=== PATIENT | female | born 1950 | race Caucasian/White ===

== ENCOUNTER 2016-10-16 08:57 | Outpatient (CLI) | payer MEDICARE, OTHER ==
[2016-10-16] MEDS ORDERED: IOTHALAMATE MEGLUMINE 50 ML VIAL IVP ONE (10:10)
[2016-10-16] MEDS ORDERED: GADOPENTETATE DIMEGLUMINE 5 ML VIAL IVP ONE (10:13)
[2016-10-16] MEDS ORDERED: LIDOCAINE 1% 50 ML MDV SUBQ ONE (10:13)
--- NOTE | 2016-10-16 12:19 | MRI Report ---
EXAM: LEFT SHOULDER MRI ARTHROGRAM WITH CONTRAST EXAM DATE: 10/16/2016 10:33 AM. CLINICAL HISTORY: Left shoulder pain. History of breast cancer. COMPARISON: None. TECHNIQUE: Multiplanar, multisequence T1-weighted and fluid-sensitive sequences of the shoulder after an arthrographic injection of dilute gadolinium, dictated under a separate exam. Other: None. FINDINGS: Acromioclavicular Region: The acromion is type II. Moderate acromioclavicular joint osteoarthritis. T here is sclerosis of the inferior margin of the acromion, suggestive of pseudoarticulation with the h umeral head. Fluid fills the subacromial bursa. Glenohumeral Region: There is superior subluxation of the humeral head consistent with chronic full-t hickness rotator cuff tear. Pseudoarticulation with the acromion. Moderate thinning of the glenohumer al cartilage. Bone Marrow: No fracture, marrow edema or bone lesions. Labrum: Mild labral fraying. Biceps Tendon: Tendinosis and partial-thickness tear of the long head of biceps in the rotator interv al. Musculature/Rotator Cuff: High-grade partial-thickness tear of subscapularis with atrophy. Complete r upture of supraspinatus with atrophy. High-grade partial-thickness tearing of infraspinatus. Other: The subcutaneous tissues are unremarkable. IMPRESSION: 1. Moderate acromioclavicular joint osteoarthritis. 2. Complete rupture of supraspinatus with atrophy. Near complete rupture of subscapularis with atroph y. 3. Tendinosis and partial-thickness tearing of the long head of biceps. 4. Superior subluxation of the humeral head with pseudoarticulation with the acromion. Mild glenohume ral osteoarthritis. [facility] MUSCULOSKELETAL RADIOLOGY SECTION Referring Provider Line: [phone] SITE ID: [id number]
--- NOTE | 2016-10-16 13:37 | XRAY Report ---
LEFT SHOULDER ARTHROGRAM: 10/16/2016 CLINICAL HISTORY: A 66-year-old female who is having left shoulder pain for many years. 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 Present exam is being done immediately preceding her MRI of the left shoulder. TECHNIQUE: A PAR conference was held, informed consent was obtained. Left shoulder was sterilely prepped with Betadine and ChloraPrep. Sterile technique was used throughout the exam. A total of 6 mL of 1% Xylocaine was used in the skin and subcutaneous tissues of the left shoulder. Under fluoroscopic guidance , a 22-gauge, 2-1/2 inch needle was placed into the left shoulder joint. Initially, 1 mL of Conray contrast was injected into the left shoulder joint. There was some question in regard to the needle being into the left shoulder joint. Because of this, the contrast material was aspirated back into the syringe. In addition to the contrast, a small amount of joint fluid was also aspirated back into the syringe. This joint fluid appeared to be rust colored which suggested old blood. Once it was determined that the needle tip was within the left shoulder joint, 15 mL of a mixture 10 mL of 1% Xylocaine and 10 mL of Conray 60 with 0.1 mL of gadolinium. FINDINGS: Upon completion of the injection into the left shoulder joint, it was noted that the joint capsule was deformed and enlarged. Also, the left humeral head was mildly subluxed superiorly in relationship to the acromion and articular surface of the left glenoid. The articular cartilage of the left shoulder joint was outlined by the contrast material. Combination of findings most likely indicates a chronic left rotator cuff tear in association with a shoulder capsule deformity produced by adhesions and/or absence/tear of at least some of the glenohumeral ligaments. Present findings are only indirect signs of shoulder pathology. The chronic left rotator cuff tear as well as the presence of potential glenohumeral ligament tears should be confirmed via the MRI arthrogram for a definitive diagnosis. FLUORO TIME: 4.1 minutes. One image was obtained. IMPRESSION: SUCCESSFUL INJECTION OF THE LEFT SHOULDER FOR MRI ARTHROGRAM. THE MIXTURE INJECTED CONTAINED 0.1 ML OF MAGNEVIST. JOB #: [id number] EXT JOB #: [id number] [facility]
== END 2016-10-16 08:58 | disposition home or self-care (01) ==
LOC: DI 08:57
PROVIDERS: ATTEND Family Medicine
DX: M19.012 Primary osteoarthritis, left shoulder (principal); M75.102 Unspecified rotator cuff tear or rupture of left shoulder, not specified as traumatic; S46.112A Strain of muscle, fascia and tendon of long head of biceps, left arm, initial encounter; S43.002A Unspecified subluxation of left shoulder joint, initial encounter
CPT/HCPCS: 23350; 73222; 77002; Q9961

== ENCOUNTER 2016-11-08 13:46 | Outpatient (CLI) | payer MEDICARE, OTHER | END 2016-11-08 13:47 | disposition home or self-care (01) | LOC: DI 13:46 | PROVIDERS: ATTEND Family Medicine | DX: Z53.9 Procedure and treatment not carried out, unspecified reason (principal) ==

== ENCOUNTER 2016-11-10 09:02 | Outpatient (CLI) | payer MEDICARE, OTHER ==
--- NOTE | 2016-11-10 10:38 | XRAY Report ---
THREE-VIEW LEFT SHOULDER: 11/10/2016 CLINICAL INDICATION: Pain, bulge. FINDINGS: Internal and external rotational views and a scapular Y view of the left shoulder are comp ared to previous MRI of 10/16/2016. The humeral head is high-riding, compatible with chronic rotator cuff tear. There is no evidence of acute fracture or dislocation. Mild osteoarthritic changes are seen. Surgical clips are present in the left axilla. IMPRESSION: MILD OSTEOARTHRITIS. CHRONIC ROTATOR CUFF TEAR. NO EVIDENCE OF ACUTE FRACTURE. JOB #: [id number] EXT JOB #:[id number]
== END 2016-11-10 09:03 | disposition home or self-care (01) ==
LOC: DI 09:02
PROVIDERS: ATTEND Family Medicine
DX: M19.012 Primary osteoarthritis, left shoulder (principal); M75.102 Unspecified rotator cuff tear or rupture of left shoulder, not specified as traumatic

== ENCOUNTER 2016-11-12 14:29 | Emergency (ER) | payer MEDICARE, OTHER ==
--- NOTE | 2016-11-12 16:00 | ED Physician Documentation ---
PD HPI UPPER EXT INJURY - Stated complaint Stated Complaint: L shoulder pain - Chief complaint Chief Complaint: Ext Problem - History obtained from History obtained from: Patient - History of Present Illness Location: Left, Shoulder Type of injury: Other (she has had shoulder pain ongoing but few days ago was lifting gently and felt pop in the upper arm and hurts with flexion of elbow. Now noting bruising and swelling of the mid biceps area left upper arm.). No: Fall, Twist Where injury occurred: Home Timing - onset: How many days ago (2-3) Timing - details: Abrupt onset Improved by: Rest Worsened by: Moving (flexion of elbow) Associated symptoms: Weakness (not as strong and it hurts to lift with left arm. ), Swelling, Discolored (bruising of mid biceps area). No: Numbness Contributing factors: No: Anticoagulated Recently seen: Clinic (saw Ortho about the shoulder with MRI of it. 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 - Past Surgical History Past Surgical History: Yes General: Appendectomy Ortho: Rotator cuff repair - Present Medications Home Medications: Ambulatory Orders Medication Instructions Recorded Confirmed Citalopram Hydrobromide [Celexa] 60 mg PO DAILY 06/14/15 06/14/15 Clonazepam [Klonopin] 1 mg PO PRN PRN 06/14/15 Hydrocodone/Acetaminophen [Vicodin 7 mg PO QID 06/14/15 Es 7.5-300 mg Tablet] Enalapril/Hydrochlorothiazide 1 tab PO DAILY 11/12/16 11/12/16 [Enalapril-Hctz 10-25 mg Tablet] - Allergies Allergies/Adverse Reactions: Allergies Allergy/AdvReac Type Severity Reaction Status Date / Time ibuprofen Allergy Unknown Verified 11/12/16 14:41 morphine Allergy Unknown Verified 11/12/16 14:41 Sulfa (Sulfonamide Allergy Unknown Verified 11/12/16 14:41 Antibiotics) - Social History Does the pt smoke?: No Smoking Status: Never smoker Does the pt have substance abuse?: No - POLST Patient has POLST: No PD ED PE NORMAL - Vitals Vital signs reviewed: Yes - General General: Alert and oriented X 3, No acute distress, Well developed/nourished - Cardiac Cardiac: RRR, No murmur - Respiratory Respiratory: Clear bilaterally - Derm Derm: Normal color, Warm and dry - Extremities Extremities: Other (left upper arm with tender upper biceps area, some swelling/ firmness mid biceps and some bruising there. No fluctuance. She is able to flex at elbow against resistance. Softness of the proximal insertion of the long head of biceps though, suggesting partial tear of the biceps. ) Results - Vitals Vitals: Vital Signs - 24 hr 11/12/16 11/12/16 14:35 16:45 Temperature 36.2 C L 37.3 C Heart Rate 81 84 Respiratory 14 18 Rate Blood Pressure 161/84 H 141/89 H O2 Saturation 100 98 Oxygen O2 Source Room air PD MEDICAL DECISION MAKING - ED course Complexity details: reviewed old records (recent MRI arthrogram of the shoulder with rotator cuff tears and partial/mostly torn long head of biceps. Her exam is consistent with now tear of that, but with other head still attached as she has flexion of elbow though weaker and hurts. ), considered differential, d/w patient Departure - Departure Disposition: 01 Home, Self Care Clinical Impression: Biceps tendon rupture, proximal Qualifiers: Encounter type: initial encounter Laterality: left Qualified Code(s): S46.112A - Strain of muscle, fascia and tendon of long head of biceps, left arm, initial encounter Condition: Stable Record reviewed to determine appropriate education?: Yes Follow-Up: Chelo Wright MD [Primary Care Provider] - Comments: I think one of the heads of the biceps tendon fully tore, but feels like there is still attachment of the other head. Continue the sling with gentle range of motion of the shoulder a few times daily so the shoulder does not stiffen up/ freeze. Continue current medications. See Ortho on Sunday as planned about the rotator cuff and now biceps tendon. Discharge Date/Time: 11/12/16 16:45
[2016-11-12 16:46] VITALS: BP 141/89
== END 2016-11-12 16:45 | disposition home or self-care (01) ==
LOC: ED 14:29
DX: S46.112A Strain of muscle, fascia and tendon of long head of biceps, left arm, initial encounter (principal); I10 Essential (primary) hypertension; X50.9XXA Other and unspecified overexertion or strenuous movements or postures, initial encounter
CPT/HCPCS: 99283

== ENCOUNTER 2017-12-21 12:00 | Outpatient (CLI) | payer MEDICARE, OTHER ==
--- NOTE | 2017-12-24 09:48 | Mammography Report ---
Reason: SCREENING MAMMO, HX OF BREAST CANCER Procedure Date: 12/21/2017 Accession Number: [id number] / [id number] Procedure: [facility] - Screening Mammo Dig Bilat CPT Code: FULL RESULT: EXAM: Screening Mammo Dig Bilat DATE: 12/21/2017 1:37 PM CLINICAL HISTORY: 67-year-old female with personal history of left breast cancer status post lumpectomy and chemoradiation. TECHNIQUE: Bilateral CC and MLO views were obtained. COMPARISON: 03/14/2016, 01/06/2015, 10/08/2013, 10/09/2012. FINDINGS: The breasts demonstrate heterogeneously dense fibroglandular parenchyma bilaterally. Posttreatment including postsurgical changes are seen in the left breast. Typically benign coarse and vascular calcifications are seen in the right breast. No suspicious masses, clustered microcalcifications, or regions of architectural distortion are identified. IMPRESSION: Benign findings RECOMMENDATION: Routine annual screening unless otherwise clinically indicated. BIRADS CATEGORY 2: Benign findings STANDARD QUALIFYING STATEMENTS: 1. This examination was not reviewed with the aid of Computer-Aided Detection (CAD). 2. A negative or benign imaging report should not delay biopsy if clinically suspicious findings are present. Consider surgical consultation if warrented. More than 5% of cancers are not identified by imaging. 3. Dense breasts may obscure an underlying neoplasm.
== END 2017-12-21 12:01 | disposition home or self-care (01) ==
LOC: DI 12:00
PROVIDERS: ATTEND Nurse Practitioner Family
DX: Z12.31 Encounter for screening mammogram for malignant neoplasm of breast (principal); Z08 Encounter for follow-up examination after completed treatment for malignant neoplasm; Z85.3 Personal history of malignant neoplasm of breast
CPT/HCPCS: 77067

== ENCOUNTER 2018-01-07 16:17 | Outpatient (CLI) | payer MEDICARE, OTHER ==
--- NOTE | 2018-01-08 10:51 | MRI Report ---
Reason: CHRONIC LOW BACK PAIN, L SHOULDER SUPRASPINOTUS TE Procedure Date: 01/07/2018 Accession Number: [id number] / [id number] Procedure: MRI - Shoulder LT W/O CPT Code: FULL RESULT: EXAM: LEFT SHOULDER MRI WITHOUT CONTRAST EXAM DATE: 01/07/2018 05:11 PM. CLINICAL HISTORY: Chronic low back pain. Left shoulder supraspinatus tear. COMPARISON: SHOULDER 3 VIEW LT 11/10/2016 9:24 AM. TECHNIQUE: Multiplanar, multisequence T1-weighted and fluid-sensitive sequences of the shoulder without contrast. Other: None. FINDINGS: Acromioclavicular Region: The acromion is type II. Mild acromioclavicular joint osteoarthritis. There is fluid in the subacromial bursa. Glenohumeral Region: Superior subluxation of the humeral head with minimal hyaline cartilage erosion. Moderate-sized joint effusion. Bone Marrow: There is fluid in the greater tuberosity. Labrum: Superior labrum degeneration consistent with rupture of the long head of biceps tendon. Musculature/Rotator Cuff: Complete rupture and atrophy of supraspinatus. Mild tendinosis of infraspinatus. Chronic rupture and atrophy of subscapularis. Biceps Tendon: Complete rupture of the long head of biceps. Other: The subcutaneous tissues are unremarkable. IMPRESSION: 1. Chronic rupture and atrophy of supraspinatus and subscapularis. Superior subluxation of the humeral head with minimal glenohumeral osteoarthritis. 2. Moderate-sized glenohumeral joint effusion. 3. Complete rupture of long head of biceps. [facility] MUSCULOSKELETAL RADIOLOGY SECTION
== END 2018-01-07 16:18 | disposition home or self-care (01) ==
LOC: DI 16:17
PROVIDERS: ATTEND Nurse Practitioner Family
DX: S46.012A Strain of muscle(s) and tendon(s) of the rotator cuff of left shoulder, initial encounter (principal); M19.012 Primary osteoarthritis, left shoulder; M25.412 Effusion, left shoulder; S46.112A Strain of muscle, fascia and tendon of long head of biceps, left arm, initial encounter

== ENCOUNTER 2018-09-12 09:31 | Outpatient (CLI) | payer MEDICARE, OTHER ==
--- NOTE | 2018-09-14 03:13 | XRAY Report ---
Reason: INJURY LEFT FOOT APPROX 2 WEEKS AGO Procedure Date: 09/12/2018 Accession Number: [id number] / [id number] Procedure: XR - Foot 3 View LT CPT Code: FULL RESULT: EXAM: LEFT FOOT RADIOGRAPHY EXAM DATE: 09/12/2018 09:43 AM. CLINICAL HISTORY: INJURY LEFT FOOT APPROX 2 WEEKS AGO. COMPARISON: None. TECHNIQUE: 3 views. FINDINGS: Bones: Normal. No fractures or bone lesions. Joints: Mild osteoarthritis with hallux valgus. Soft Tissues: Normal. No soft tissue swelling. IMPRESSION: Mild osteoarthritis, with hallux valgus. No evidence of fracture. [facility]
== END 2018-09-12 09:32 | disposition home or self-care (01) ==
LOC: DI 09:31
PROVIDERS: ATTEND Podiatrist
DX: S99.922A Unspecified injury of left foot, initial encounter (principal); M19.072 Primary osteoarthritis, left ankle and foot; M20.12 Hallux valgus (acquired), left foot

== ENCOUNTER 2018-12-28 17:24 | Emergency (ER) | payer MEDICARE, OTHER ==
[2018-12-28 18:12] LABS: BASOPHILS % (AUTO) 0.6 %; EOSINOPHILS # (AUTO) 0.1 10^3/uL (0.0-0.7); EOSINOPHILS % (AUTO) 1.9 %; HGB - HEMOGLOBIN 11.5 g/dL (12.0-16.0); LYMPHOCYTES # (AUTO) 1.8 10^3/uL (1.5-3.5); LYMPHOCYTES % (AUTO) 26.4 %; MEAN CORPUSCULAR HEMOGLOBIN 31.7 pg (27.0-31.0); MEAN CORPUSCULAR HGB CONC 33.1 g/dL (32.0-36.0); MEAN CORPUSCULAR VOLUME 95.6 fL (81.0-99.0); MEAN PLATELET VOLUME 8.5 fL (7.9-10.8); MONOCYTES # (AUTO) 0.6 10^3/uL (0.0-1.0); MONOCYTES % (AUTO) 8.3 %; NEUTROPHILS # (AUTO) 4.3 10^3/uL (1.5-6.6); NEUTROPHILS % (AUTO) 62.5 %; PLT - PLATELET COUNT 335 10^3/uL (130-450); RED BLOOD COUNT 3.63 10^6/uL (4.20-5.40); WHITE BLOOD COUNT 6.9 x10^3/uL (4.8-10.8)
[2018-12-28 18:26] LABS: ALBUMIN/GLOBULIN RATIO 1.4 (1.0-2.2); BILIRUBIN,TOTAL 0.7 mg/dL (0.2-1.0); CALCIUM 9.5 mg/dL (8.5-10.3); CREATININE 0.5 mg/dL (0.4-1.0); CRP - C-REACTIVE PROTEIN 2.8 mg/dL (0-1.0); TOTAL PROTEIN 6.8 g/dL (6.7-8.2)
[2018-12-28 19:06] LABS: BILIRUBIN,URINE NEGATIVE (NEGATIVE); CLARITY,URINE CLEAR (CLEAR); GLUCOSE, URINE (UA) NEGATIVE (NEGATIVE); KETONES,URINE (UA) NEGATIVE (NEGATIVE); LEUKOCYTE ESTERASE, URINE TRACE (NEGATIVE); NITRITE,URINE NEGATIVE (NEGATIVE); OCCULT BLOOD,URINE TRACE-INTA (NEGATIVE); PH,URINE 6.5 PH (5.0-7.5); PROTEIN,URINE NEGATIVE (NEGATIVE); UROBILINOGEN,URINE 0.2 (NORMAL) E.U./dL (NORMAL)
--- NOTE | 2018-12-28 19:08 | ED Physician Documentation ---
History of Present Illness - Stated complaint Stated Complaint: LT LEG PX - Chief complaint Chief Complaint: Wound - Additonal information Additional information: This is a 68-year-old female with a history of hypertension, who presents with pain and swelling and redness over her left 2nd toe. Patient noticed this morning that she had some redness in her toe after she had an abrasion there from wearing boots, redness and swelling has increased and she noticed a pustule forming on the toe. And some redness streaking up her leg so she presented here. She denies fever. 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 Psych: Depression Musculoskeletal: Osteoarthritis, Osteopenia, Chronic back pain - Past Surgical History Past Surgical History: Yes General: Appendectomy Ortho: Rotator cuff repair - Present Medications Home Medications: Ambulatory Orders Medication Instructions Recorded Confirmed Citalopram Hydrobromide [Celexa] 60 mg PO DAILY 06/14/15 12/22/16 Hydrocodone/Acetaminophen [Vicodin 7 mg PO QID 06/14/15 12/22/16 Es 7.5-300 mg Tablet] clonazePAM [Klonopin] 1 mg PO PRN PRN 06/14/15 12/22/16 Enalapril/Hydrochlorothiazide 1 tab PO DAILY 11/12/16 12/22/16 [Enalapril-Hctz 10-25 mg Tablet] Multivit with Calcium,Iron,Min 1 each PO DAILY 12/22/16 12/22/16 [Multiple Vitamins For Women] [place]-3S/Dha/Epa/Fish Oil [Fish 1 each PO DAILY 12/22/16 12/22/16 Oil 1,200 mg Softgel] Bacitracin Zinc Oint 1 applic TOP BID #1 tube 12/28/18 Clindamycin HCl [Clindamycin 300MG 300 mg PO Q6H #32 capsule 12/28/18 CAP] - Allergies Allergies/Adverse Reactions: Allergies Allergy/AdvReac Type Severity Reaction Status Date / Time ibuprofen Allergy Unknown Verified 12/28/18 17:40 morphine Allergy Unknown Verified 12/28/18 17:40 Sulfa (Sulfonamide Allergy Unknown Verified 12/28/18 17:40 Antibiotics) - Social History Does the pt smoke?: No Smoking Status: Never smoker Does the pt have substance abuse?: No - POLST Patient has POLST: No PD ED PE NORMAL - Vitals Vital signs reviewed: Yes - General General: Alert and oriented X 3, No acute distress - HEENT HEENT: PERRL - Neck Neck: Supple, no meningeal sign - Cardiac Cardiac: RRR - Respiratory Respiratory: No respiratory distress, Clear bilaterally - Abdomen Abdomen: Non distended - Derm Derm: Warm and dry - Extremities Extremities: Other (There is a fluctuant pustule over the distal joint on the dorsal surface of the second toe on the left foot. There is surrounding redness which is streaking up the dorsum of the foot and up the ankle to the lower jenkins. There is no volar redness, no bone visible, limb is neurovascularly intact.) - Neuro Neuro: Alert and oriented X 3 - Psych Psych: Normal mood, Normal affect Results - Vitals Vitals: Oxygen O2 Source Room air - Labs Labs: Microbiology 12/28/18 19:00 Urine Culture - Preliminary Urine,Clean Catch CULTURE IN PROGRESS. RESULTS TO FOLLOW. Laboratory Tests 12/28/18 12/28/18 12/28/18 18:05 18:05 18:05 WBC 6.9 RBC 3.63 L Hgb 11.5 L Hct 34.7 L MCV 95.6 MCH 31.7 H MCHC 33.1 RDW 12.0 Plt Count 335 MPV 8.5 Neut # (Auto) 4.3 Lymph # (Auto) 1.8 [place] # (Auto) 0.6 Eos # (Auto) 0.1 Baso # (Auto) 0.0 Absolute Nucleated RBC 0.00 Nucleated RBC % 0.0 ESR 11 Sodium 136 Potassium 3.0 L Chloride 97 L Carbon Dioxide 28 Anion Gap 11.0 BUN 20 Creatinine 0.5 Estimated GFR (MDRD) 123 Glucose 132 H Calcium 9.5 Total Bilirubin 0.7 AST 22 ALT 22 Alkaline Phosphatase 64 C-Reactive Protein 2.8 H Total Protein 6.8 Albumin 4.0 Globulin 2.8 Albumin/Globulin Ratio 1.4 Lipase 35 Urine Color Urine Clarity Urine pH Ur Specific [place] Urine Protein Urine Glucose (UA) Urine Ketones Urine Occult Blood Urine Nitrite Urine Bilirubin Urine Urobilinogen Ur Leukocyte Esterase Urine RBC Urine WBC Ur Squamous Epith Cells Urine Bacteria Ur Microscopic Review Urine Culture Comments 12/28/18 19:00 WBC RBC Hgb Hct MCV MCH MCHC RDW Plt Count MPV Neut # (Auto) Lymph # (Auto) [place] # (Auto) Eos # (Auto) Baso # (Auto) Absolute Nucleated RBC Nucleated RBC % ESR Sodium Potassium Chloride Carbon Dioxide Anion Gap BUN Creatinine Estimated GFR (MDRD) Glucose Calcium Total Bilirubin AST ALT Alkaline Phosphatase C-Reactive Protein Total Protein Albumin Globulin Albumin/Globulin Ratio Lipase Urine Color YELLOW Urine Clarity CLEAR Urine pH 6.5 Ur Specific [place] 1.020 Urine Protein NEGATIVE Urine Glucose (UA) NEGATIVE Urine Ketones NEGATIVE Urine Occult Blood TRACE-INTA Urine Nitrite NEGATIVE Urine Bilirubin NEGATIVE Urine Urobilinogen 0.2 (NORMAL) Ur Leukocyte Esterase TRACE H Urine RBC 0-5 Urine WBC 6-10 H Ur Squamous Epith Cells NONE SEEN Urine Bacteria None Seen Ur Microscopic Review INDICATED Urine Culture Comments INDICATED PD MEDICAL DECISION MAKING - ED course Complexity details: considered differential (Abscess, cellulitis, osteomyelitis, necrotizing soft tissue infection) ED course: Patient presents with a pustule on her left second toe with erythema which is extending up her foot on her lower leg. The obvious abscess was drained as noted above, the patient was given a dose of clindamycin given she has an allergy to sulfa antibiotics. Labs Show no leukocytosis, only a mildly elevated C-reactive protein. She has no fever, or signs of systemic toxicity, And appears appropriate for trial of outpatient antibiotics. The redness is not significantly progressed during her stay here, and she does not have clinical signs of necrotizing soft tissue infection. I discussed with her that she does have a significant cellulitis, and that she needs to watch it carefully for signs of progression. A culture was sent to the wound. I marked out the borders of the area of cellulitis, and explained her that if the erythema progresses 2 cm past the border of the area that is marked out she needs to return to the emergency department. Likewise she should return if she has any systemic symptoms such as fever, or any other worsening. I recommended close follow-up with her primary care provider. I also discussed wound care for the area of the abscess drainage. The abscess itself was very shallow, did not extend to the tendons or bones or joints, and I have a very low suspicion for osteomyelitis, I do not think that she requires a an x-ray of her foot today. Departure - Departure Disposition: 01 Home, Self Care Clinical Impression: Abscess, Cellulitis and abscess of foot Condition: Good Instructions: ED Abscess IandD Follow-Up: EDUARDO QUICK ARNP [Primary Care Provider] - Within 3 Days (For recheck of infection) Prescriptions: Bacitracin Zinc Oint 1 applic TOP BID #1 tube Clindamycin HCl [Clindamycin 300MG CAP] 300 mg PO Q6H #32 capsule Comments: You were seen today for infection of your toe. You had a small abscess there which was drained. Please take the entire course of antibiotics. If the redness is progressing more than 2 cm past the border of the edges that we traced out, return to the emergency department. If you develop fever or other concerning symptoms please return to emergency department as well. Otherwise please follow-up with your primary care provider Discharge Date/Time: 12/28/18 20:51
[2018-12-28 19:20] LABS: BACTERIA,URINE None Seen /HPF (None Seen); RBC,URINE 0-5 /HPF (0-5); SQUAMOUS EPITHELIAL CELL,UR NONE SEEN (<= Few)
[2018-12-28] MEDS ORDERED: CLINDAMYCIN 150 MG CAPSULE PO STA (19:34)
[2018-12-28] MEDS ORDERED: BUFFERED LIDOCAINE 10 ML SYRINGE SUBQ STA (19:52)
[2018-12-28 20:20] VITALS: BP 147/87
== END 2018-12-28 20:51 | disposition home or self-care (01) ==
LOC: ED 17:24
DX: L02.612 Cutaneous abscess of left foot (principal); L03.116 Cellulitis of left lower limb; R79.82 Elevated C-reactive protein (CRP); I10 Essential (primary) hypertension; Z88.2 Allergy status to sulfonamides
CPT/HCPCS: 36415; 80053; 81001; 83690; 85025; 85651; 86140; 87070; 87075; 87086; 87205; 99283; 99284; A9270; 81003

== ENCOUNTER 2019-04-28 13:06 | Outpatient (CLI) | payer MEDICARE, OTHER ==
[2019-04-28 18:55] LABS: RHEUMATOID FACTOR NEGATIVE (Negative)
== END 2019-04-28 13:07 | disposition home or self-care (01) ==
LOC: LAB.S 13:06
PROVIDERS: ATTEND Nurse Practitioner Family
DX: M25.559 Pain in unspecified hip (principal); Z12.11 Encounter for screening for malignant neoplasm of colon; E78.5 Hyperlipidemia, unspecified
CPT/HCPCS: 36415; 80061; 82270; 83721; 85651; 86038; 86140; 86200; 86430

== ENCOUNTER 2020-06-01 11:17 | Outpatient (CLI) | payer MEDICARE, BC ==
--- NOTE | 2020-06-02 10:08 | Mammography Report ---
BILATERAL DIGITAL SCREENING MAMMOGRAM 3D/2D WITH EXAGGERATED CC: 06/01/2020 CLINICAL: Routine screening. Comparison is made to exams dated: 12/21/2017 mammogram, 03/14/2016 mammogram, 10/08/2013 mammogram, mammogram, and 10/09/2012 mammogram - [facility]. The tissue of both breast s is predominantly fatty. No significant masses, calcifications, or other findings are seen in either breast. There has been no significant interval change. IMPRESSION: NEGATIVE There is no mammographic evidence of malignancy. A 1 year screening mammogram is recommended. This exam was interpreted at Station ID: [id number]. NOTE: For mammograms, a report in lay terms will be sent to the patient. Approximately 15% of breast malignancies will not be visualized mammographically. In the management of a palpable breast mass, a negative mammogram must not discourage biopsy of a clinically suspicious lesion. Electronically Signed By: Hector Pal acr/penrad:06/01/2020 15:01:51 ACR BI-RADS Category 1: Negative 3341F PARENCHYMAL PATTERN: (F) - The breast(s) demonstrate(s) diffuse fatty replacement. BI-RADS CATEGORY: (1) - 1 RECOMMENDATION: (ANNUAL) - Recommend routine annual screening mammography. [id number] 1 year screening LATERALITY: (B)
== END 2020-06-01 11:18 | disposition home or self-care (01) ==
LOC: DI.S 11:17
DX: Z12.31 Encounter for screening mammogram for malignant neoplasm of breast (principal)

== ENCOUNTER 2020-06-17 12:35 | Outpatient (CLI) | payer MEDICARE, BC ==
[2020-06-17 15:54] LABS: BASOPHILS % (AUTO) 0.8 %; EOSINOPHILS # (AUTO) 0.1 10^3/uL (0.0-0.7); EOSINOPHILS % (AUTO) 1.8 %; HCT - HEMATOCRIT 37.4 % (37.0-47.0); HGB - HEMOGLOBIN 12.2 g/dL (12.0-16.0); LYMPHOCYTES # (AUTO) 1.4 10^3/uL (1.5-3.5); LYMPHOCYTES % (AUTO) 35.7 %; MEAN CORPUSCULAR HEMOGLOBIN 32.3 pg (27.0-31.0); MEAN CORPUSCULAR HGB CONC 32.6 g/dL (32.0-36.0); MEAN CORPUSCULAR VOLUME 98.9 fL (81.0-99.0); MEAN PLATELET VOLUME 8.7 fL (7.9-10.8); MONOCYTES # (AUTO) 0.5 10^3/uL (0.0-1.0); MONOCYTES % (AUTO) 11.4 %; NEUTROPHILS % (AUTO) 49.8 %; PLT - PLATELET COUNT 412 10^3/uL (130-450); RED BLOOD COUNT 3.78 10^6/uL (4.20-5.40)
[2020-06-17 16:14] LABS: ALBUMIN 4.3 g/dL (3.2-5.5); ALBUMIN/GLOBULIN RATIO 1.4 (1.0-2.2); ALKALINE PHOSPHATASE 82 IU/L (42-121); ALT ALANINE AMINOTRANSFERASE 28 IU/L (10-60); AST ASPARTATE AMINOTRANSFERASE 27 IU/L (10-42); BUN - BLOOD UREA NITROGEN 19 mg/dL (6-20); CALCIUM 9.4 mg/dL (8.5-10.3); CARBON DIOXIDE - CO2 28 mmol/L (21-32); CHLORIDE 96 mmol/L (101-111); CHOL/HDL RATIO 3.6 (<4.4); CHOLESTEROL 297 mg/dL; CREATININE 0.4 mg/dL (0.4-1.0); GFR - MDRD 158 (>89); GLUCOSE 103 mg/dL (70-100); HDL CHOLESTEROL 82 mg/dL; LDL CHOLESTEROL,CALCULATED 195 mg/dL; LDL/HDL RATIO 2.4 (<4.4); POTASSIUM 3.6 mmol/L (3.5-5.0); SODIUM 134 mmol/L (135-145); TOTAL PROTEIN 7.3 g/dL (6.7-8.2); TRIGLYCERIDES 99 mg/dL; VLDL CHOLESTEROL 20 mg/dL
== END 2020-06-17 12:36 | disposition home or self-care (01) ==
LOC: LAB.S 12:35
PROVIDERS: ATTEND Nurse Practitioner Family
DX: A60.00 Herpesviral infection of urogenital system, unspecified (principal); E78.5 Hyperlipidemia, unspecified; I10 Essential (primary) hypertension; E78.1 Pure hyperglyceridemia
CPT/HCPCS: 36415; 80053; 80061; 83721; 85025

== ENCOUNTER 2021-04-12 12:26 | Outpatient (CLI) | payer BC, MEDICARE ==
--- NOTE | 2021-04-12 14:49 | XRAY Report ---
PROCEDURE: Forearm RT INDICATIONS: PAIN IN RIGHT ARM TECHNIQUE: 2 views of the forearm were acquired. COMPARISON: None FINDINGS: Bones: Mildly displaced oblique fracture of the distal ulna. No suspicious bony lesions. Soft tissues: No suspicious soft tissue calcifications or masses. IMPRESSION: Distal ulnar fracture. Reviewed by: Sue Gonzalez MD on 04/12/2021 2:47 PM PST Approved by: Sue Gonzalez MD on 04/12/2021 2:47 PM PST Station ID: [id number]
--- NOTE | 2021-04-12 16:30 | XRAY Report ---
PROCEDURE: Wrist 2 View RT INDICATIONS: PAIN IN RIGHT WRIST TECHNIQUE: 2 views of the wrist were acquired. COMPARISON: X-ray forearm 04/12/2021 FINDINGS: Bones: There is a mildly displaced fracture of the distal ulna. No visualized intra-articular extensi on. No suspicious bony lesions. Soft tissues: No suspicious soft tissue calcifications. IMPRESSION: Mildly displaced distal ulnar metaphyseal fracture. Reviewed by: Jayda Hooks MD on 04/12/2021 4:29 PM PST Approved by: Jayda Hooks MD on 04/12/2021 4:29 PM [facility] Station ID: [id number]
== END 2021-04-12 12:27 | disposition home or self-care (01) ==
LOC: DI.S 12:26
PROVIDERS: ATTEND Family Medicine
DX: S52.601A Unspecified fracture of lower end of right ulna, initial encounter for closed fracture (principal)

== ENCOUNTER 2021-05-17 07:49 | Outpatient (CLI) | payer MEDICARE ==
--- NOTE | 2021-05-17 16:15 | XRAY Report ---
PROCEDURE: Wrist 3 View RT INDICATIONS: RIGHT WRIST FRACTURE TECHNIQUE: 3 views of the wrist were acquired. COMPARISON: 04/12/2021 FINDINGS: Bones: Increased, moderate displacement of the distal ulnar fracture. Scaphoid view: Not requested Soft tissues: No suspicious soft tissue calcifications. IMPRESSION: Increased displacement of distal ulnar fracture. Reviewed by: Sue Gonzalez MD on 05/17/2021 4:14 PM PST Approved by: Sue Gonzalez MD on 05/17/2021 4:14 PM [facility] Station ID: [id number]
== END 2021-05-17 07:50 | disposition home or self-care (01) ==
LOC: DI.WOS 07:49
PROVIDERS: ATTEND Orthopaedic Surgery
DX: S52.201G Unspecified fracture of shaft of right ulna, subsequent encounter for closed fracture with delayed healing (principal)

== ENCOUNTER 2021-06-14 08:00 | Outpatient (CLI) | payer MEDICAID, MEDICARE ==
--- NOTE | 2021-06-14 15:38 | XRAY Report ---
PROCEDURE: Wrist 3 View RT INDICATIONS: RIGHT WRIST FRACTURE TECHNIQUE: 3 views of the wrist were acquired. COMPARISON: Right wrist radiographs 05/17/2021 and 04/12/2021 FINDINGS: Bones: Process appearing changes are seen involving the previously seen distal ulnar fracture with in creased callus formation and periosteal new bone formation. The alignment has not significantly estrada ed compared to the most recent exam. No suspicious bony lesions. Soft tissues: No suspicious soft tissue calcifications. IMPRESSION: Progressive healing changes involving the distal ulnar fracture. Reviewed by: Joey Horn MD on 06/14/2021 3:37 PM PDT Approved by: Joey Horn MD on 06/14/2021 3:37 PM PDT Station ID: [id number]
== END 2021-06-14 23:59 ==
LOC: DI.WOS 08:00
PROVIDERS: ATTEND Physician Assistant
DX: S52.691D Other fracture of lower end of right ulna, subsequent encounter for closed fracture with routine healing (principal)

== ENCOUNTER 2021-06-29 09:38 | Outpatient (CLI) | payer MEDICARE ==
--- NOTE | 2021-06-29 13:36 | XRAY Report ---
PROCEDURE: Hip w/Pelvis 2-3V RT INDICATIONS: XRAY TECHNIQUE: AP pelvis with lateral view(s) of the right hip(s). COMPARISON: None. FINDINGS: Bones: No fractures or dislocations. Moderate bilateral acetabular protrusio due to medial joint spa ce loss, right slightly greater than left. There are subcortical cystic changes medially, and femoral head, and acetabular spurring. Pelvic ring appears intact. Sacroiliac joints appear normal. There i s degenerative disc disease in the visible lower lumbar spine. There are minor erosive changes at the pubic symphysis. No suspicious bony lesions. Soft tissues: The visualized bowel gas pattern is normal. No suspicious soft tissue calcifications. Curvilinear metallic sutures transversely across the low pelvis. IMPRESSION: 1. 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 Degree of degeneration is fairly symmetric. Reviewed by: Jazlyn Moody MD on 06/29/2021 1:35 PM PDT Approved by: Jazlyn Moody MD on 06/29/2021 1:35 PM PDT Station ID: [id number]
== END 2021-06-29 09:39 | disposition home or self-care (01) ==
LOC: DI.S 09:38
PROVIDERS: ATTEND Nurse Practitioner Family
DX: M24.7 Protrusio acetabuli (principal); M19.09 Primary osteoarthritis, other specified site

== ENCOUNTER 2021-07-26 08:48 | Outpatient (CLI) | payer MEDICARE ==
--- NOTE | 2021-07-26 15:55 | XRAY Report ---
PROCEDURE: Wrist 3 View RT INDICATIONS: WRIST FRACTURE TECHNIQUE: 3 views of the wrist were acquired. COMPARISON: None FINDINGS: Bones: Healing distal ulnar fracture shows bridging callus and remodeling, increased from the prior. Generalized decreased osseous mineralization present. Scaphoid view: Not utilized Soft tissues: No suspicious soft tissue calcifications. IMPRESSION: Healing distal ulnar fracture Reviewed by: Gary Felipe MD on 07/26/2021 2:54 PM AKDT Approved by: Gary Felipe MD on 07/26/2021 2:54 PM AKDT Station ID: [id number]
== END 2021-07-26 23:59 | disposition home or self-care (01) ==
LOC: DI.WOS 08:48
PROVIDERS: ATTEND Physician Assistant
DX: S52.691D Other fracture of lower end of right ulna, subsequent encounter for closed fracture with routine healing (principal)

== ENCOUNTER 2021-09-28 10:17 | Outpatient (CLI) | payer MEDICARE ==
--- NOTE | 2021-09-28 12:13 | DEXA Report ---
PROCEDURE: Dexa Spine and/or Hip INDICATIONS: POST MENOPAUSAL TECHNIQUE: Dual energy x-ray absorptiometry (DXA) was performed on a [employer] System. Regions measur ed are the AP Spine, femoral neck, and if needed forearm. COMPARISON: None. FINDINGS: Lumbar Spine: Bone Mineral Density 0.9 g/cm/cm,T score -2.9, osteoporosis Left Hip: Bone Mineral Density 0.84 g/cm/cm,T score -1.3, osteopenia Impression: 1. Lumbar spine osteoporosis. 2. Left hip osteopenia. Patients with diagnosis of osteoporosis or osteopenia should have regular bone mineral density assess ment. For those eligible for Medicare, routine testing is allowed once every 2 years. Testing frequ ency can be increased for patients who have rapidly progressing disease or for those who are receivin g medical therapy to restore bone mass. Reviewed by: Sue Gonzalez MD on 09/28/2021 11:12 AM NELLI Approved by: Sue Gonzalez MD on 09/28/2021 11:12 AM NELLI Station ID: [id number]
[2021-09-28 13:08] LABS: ESTIMATED AVERAGE GLUCOSE 111 mg/dL (70-100); HEMOGLOBIN A1c% 5.5 % (4.27-6.07)
== END 2021-09-28 10:18 | disposition home or self-care (01) ==
LOC: DI 10:17
PROVIDERS: ATTEND Nurse Practitioner Family
DX: Z01.818 Encounter for other preprocedural examination (principal); Z78.0 Asymptomatic menopausal state; R73.9 Hyperglycemia, unspecified; M81.0 Age-related osteoporosis without current pathological fracture
CPT/HCPCS: 36415; 83036; 93005

== ENCOUNTER 2021-12-16 14:29 | Outpatient (CLI) | payer MEDICARE | END 2021-12-16 14:30 | disposition short-term general hospital (02) | LOC: EMS 14:29 | DX: M25.552 Pain in left hip (principal); R53.1 Weakness; R11.10 Vomiting, unspecified; W18.39XA Other fall on same level, initial encounter; Y92.009 Unspecified place in unspecified non-institutional (private) residence as the place of occurrence of the external cause | CPT/HCPCS: A0425; A0427 ==

== ENCOUNTER 2022-01-24 14:19 | Outpatient (CLI) | payer MEDICARE ==
--- NOTE | 2022-01-24 15:34 | Ultrasound Report ---
PROCEDURE: Duplex Ext Veins Left INDICATIONS: LEFT LEG SWELLING TENDERNESS TECHNIQUE: Real-time imaging, as well as color and pulse Doppler interrogation, were performed of the lower extr emity deep veins from the inguinal ligament to the popliteal fossa. COMPARISON: None. FINDINGS: The deep veins are normally compressible, and free of intraluminal thrombus. Color and pu lse Doppler demonstrate normal phasic intraluminal flow. There is normal augmentation response to di stal compression maneuver. IMPRESSION: No deep vein thrombosis of the left lower extremity. Reviewed by: Viktoriya Ardon MD on 01/24/2022 3:32 PM PDT Approved by: Viktoriya Ardon MD on 01/24/2022 3:32 PM PDT Station ID: [id number]
== END 2022-01-24 14:20 | disposition home or self-care (01) ==
LOC: DI 14:19
PROVIDERS: ATTEND Orthopaedic Surgery
DX: M87.052 Idiopathic aseptic necrosis of left femur (principal)

== ENCOUNTER 2022-06-15 11:35 | Outpatient (CLI) | payer MEDICARE ==
--- NOTE | 2022-06-16 10:43 | Mammography Report ---
BILATERAL DIGITAL SCREENING MAMMOGRAM 3D/2D: 06/15/2022 CLINICAL: Routine screening. Personal history of left breast cancer. Comparison is made to exams dated: 06/01/2020 mammogram, 12/21/2017 mammogram, 03/14/2016 mammogram, an d 01/06/2015 mammogram - [facility]. Both breasts are heterogeneously dense, which may obscure small masses (category c / 51-75% glandular tissue). There are benign vascular calcifications in both breasts. There also are benign post operative findi ngs in the left breast. No significant masses, calcifications, or other findings are seen in either breast. There has been no significant interval change. IMPRESSION: BENIGN There is no mammographic evidence of malignancy. A 1 year screening mammogram is recommended. This exam was interpreted at Station ID: [id number]. NOTE: For mammograms, a report in lay terms will be sent to the patient. Approximately 15% of breast malignancies will not be visualized mammographically. In the management of a palpable breast mass, a negative mammogram must not discourage biopsy of a clinically suspicious lesion. Electronically Signed By: Bradly Kraus M.D. [facility] – [place]:06/15/2022 12:53:15 letter sent: No_Letter ACR BI-RADS Category 2: Benign Finding(s) 3342F PARENCHYMAL PATTERN: (D) - The breast(s) demonstrate(s) heterogeneously dense fibroglandular parcruzy isaías. BI-RADS CATEGORY: (2) - 2 Mammogram [id number] 1 year screening LATERALITY: (B)
== END 2022-06-15 11:36 | disposition home or self-care (01) ==
LOC: DI 11:35
DX: Z12.31 Encounter for screening mammogram for malignant neoplasm of breast (principal); Z85.3 Personal history of malignant neoplasm of breast

== ENCOUNTER 2022-08-09 16:39 | Outpatient (CLI) | payer MEDICARE ==
--- NOTE | 2022-08-09 16:56 | XRAY Report ---
PROCEDURE: Wrist 3 View RT INDICATIONS: RIGHT WRIST FRACTURE TECHNIQUE: 3 views of the wrist were acquired. COMPARISON: 07/26/2022 FINDINGS: Bones: No change in distal radial sclerosis, compatible with a healing fracture. Chronic distal ulna r fracture is unchanged. No suspicious bony lesions. Scaphoid view: Not requested Soft tissues: No suspicious soft tissue calcifications or masses. IMPRESSION: No change in healing distal radial fracture. Reviewed by: Sue Gonzalez MD on 08/09/2022 4:54 PM PDT Approved by: Sue Gonzalez MD on 08/09/2022 4:54 PM PDT Station ID: [id number]
== END 2022-08-09 16:40 | disposition home or self-care (01) ==
LOC: DI.WOS 16:39
PROVIDERS: ATTEND Orthopaedic Surgery
DX: S52.501D Unspecified fracture of the lower end of right radius, subsequent encounter for closed fracture with routine healing (principal)

== ENCOUNTER 2022-08-29 08:00 | Outpatient (CLI) | payer MEDICARE ==
--- NOTE | 2022-08-29 14:57 | XRAY Report ---
PROCEDURE: Wrist 3 View RT INDICATIONS: RIGHT WRIST FRACTURE TECHNIQUE: 3 views of the wrist were acquired. COMPARISON: X-ray wrist 08/09/2022. FINDINGS: Bones: Stable appearance of mildly impacted distal radial fracture with sclerotic appearance along f racture site. Alignment is stable. Irregularity of the distal ulna is present suggestive of old fract ure. Soft tissues: No suspicious soft tissue calcifications or masses. IMPRESSION: Stable alignment and healing appearance of distal radial fracture. Reviewed by: Jayda Hooks MD on 08/29/2022 2:56 PM PDT Approved by: Jayda Hooks MD on 08/29/2022 2:56 PM PDT Station ID: [id number]
== END 2022-08-29 23:59 | disposition home or self-care (01) ==
LOC: DI.WOS 08:00
PROVIDERS: ATTEND Orthopaedic Surgery
DX: S52.531D Colles' fracture of right radius, subsequent encounter for closed fracture with routine healing (principal)

== ENCOUNTER 2022-09-18 10:23 | Outpatient (CLI) | payer MEDICARE ==
[2022-09-18 10:55] LABS: ALBUMIN 4.5 g/dL (3.2-5.5); ALBUMIN/GLOBULIN RATIO 1.5 (1.0-2.2); BILIRUBIN,TOTAL 0.9 mg/dL (0.2-1.0); CALCIUM 9.1 mg/dL (8.5-10.3); CREATININE 0.5 mg/dL (0.4-1.0); POTASSIUM 3.9 mmol/L (3.5-5.0); TOTAL PROTEIN 7.5 g/dL (6.7-8.2)
[2022-09-18 11:21] LABS: FOLATE 22.88 ng/mL (5.90 - >24.8)
== END 2022-09-18 10:24 | disposition home or self-care (01) ==
LOC: LAB 10:23
PROVIDERS: ATTEND Nurse Practitioner Family
DX: I10 Essential (primary) hypertension (principal); D64.9 Anemia, unspecified; M80.0AXS Age-related osteoporosis with current pathological fracture, other site, sequela
CPT/HCPCS: 36415; 80053; 82306; 82607; 82746

== ENCOUNTER 2022-09-28 14:02 | Outpatient (CLI) | payer MEDICARE ==
[2022-09-28 14:33] LABS: ALBUMIN 4.4 g/dL (3.2-5.5); ALBUMIN/GLOBULIN RATIO 1.5 (1.0-2.2); BILIRUBIN,TOTAL 0.7 mg/dL (0.2-1.0); CALCIUM 9.3 mg/dL (8.5-10.3); CREATININE 0.5 mg/dL (0.4-1.0); PHOSPHORUS 3.9 mg/dL (2.5-4.6); POTASSIUM 3.9 mmol/L (3.5-5.0); TOTAL PROTEIN 7.3 g/dL (6.7-8.2)
[2022-10-02 17:08] LABS: A/G RATIO 1.5 (0.7-1.7); ALPHA-1-GLOBULIN 0.2 g/dL (0.0-0.4); ALPHA-2-GLOBULIN 0.8 g/dL (0.4-1.0); BETA GLOBULIN 0.9 g/dL (0.7-1.3); GAMMA GLOBULIN 0.8 g/dL (0.4-1.8); GLOBULIN, TOTAL 2.7 g/dL (2.2-3.9); PROTEIN TOTAL 6.7 g/dL (6.0-8.5)
== END 2022-09-28 14:03 | disposition home or self-care (01) ==
LOC: LAB 14:02
PROVIDERS: ATTEND Internal Medicine Endocrinology, Diabetes & Metabolism
DX: M81.0 Age-related osteoporosis without current pathological fracture (principal)
CPT/HCPCS: 36415; 80053; 82306; 83970; 84100; 84155; 84165

== ENCOUNTER 2023-03-19 13:28 | Outpatient (CLI) | payer MEDICARE ==
[2023-03-19 14:07] LABS: ALBUMIN 4.7 g/dL (3.2-5.5); ALKALINE PHOSPHATASE 62 IU/L (42-121); ALT ALANINE AMINOTRANSFERASE 23 IU/L (10-60); AST ASPARTATE AMINOTRANSFERASE 24 IU/L (10-42); BILIRUBIN,TOTAL 0.9 mg/dL (0.2-1.0); BUN - BLOOD UREA NITROGEN 15 mg/dL (6-20); CALCIUM 9.5 mg/dL (8.5-10.3); CARBON DIOXIDE - CO2 31 mmol/L (21-32); CHLORIDE 97 mmol/L (101-111); CHOL/HDL RATIO 2.2 (<4.4); CHOLESTEROL 191 mg/dL; CREATININE 0.5 mg/dL (0.6-1.3); GFR - MDRD 121 (>89); GLUCOSE 131 mg/dL (74-104); HDL CHOLESTEROL 88 mg/dL; LDL CHOLESTEROL,CALCULATED 63 mg/dL; LDL/HDL RATIO 0.7 (<4.4); POTASSIUM 3.3 mmol/L (3.5-4.5); SODIUM 134 mmol/L (135-145); TRIGLYCERIDES 198 mg/dL (48-352); VLDL CHOLESTEROL 40 mg/dL
== END 2023-03-19 13:29 | disposition home or self-care (01) ==
LOC: LAB 13:28
PROVIDERS: ATTEND Nurse Practitioner Family
DX: E78.5 Hyperlipidemia, unspecified (principal); D50.9 Iron deficiency anemia, unspecified
CPT/HCPCS: 36415; 80053; 80061; 83721

== ENCOUNTER 2023-07-03 15:16 | Outpatient (CLI) | payer MEDICARE ==
--- NOTE | 2023-07-03 18:54 | CT Report ---
PROCEDURE: Cervical Spine WO INDICATIONS: CERVICALGIA TECHNIQUE: Noncontrast 3 mm thick sections acquired from the skull base to the T4 level. Sagittal and coronal r eformats were then constructed. For radiation dose reduction, the following was used: automated exp osure control, adjustment of mA and/or kV according to patient size. COMPARISON: Correlation is made with the accompanying imaging. FINDINGS: Image quality: Excellent. Bones: No fractures or dislocations. Visualized superior ribs are intact. Focal degenerative change can be seen involving the C1-C2 interface anteriorly. There is mild anterol isthesis seen at the C3-C4 and C4-C5 levels. There is moderate disc space narrowing seen at C3-C4. Mo derate severe disc space narrowing can be seen at C5-C6 and the C6-C7. Endplate irregularity and scle rosis are seen at C5-C6 and at C6-C7. Mild posteriorly directed endplate osteophytes can be seen at C 5-C6 and at C6-C7. Partially bridging anterior osteophytes are seen at C6-C7. Multiple levels of sign ificant facet degenerative change can be seen, with fusion noted superiorly. Soft tissues: Prevertebral soft tissues are normal in thickness. No paravertebral hematomas. No ap ical pneumothoraces. IMPRESSION: Multiple levels of significant cervical spine degenerative change can be seen, which are overall most prominent inferiorly. Reviewed by: Jai Hernández MD on 07/03/2023 5:53 PM NELLI Approved by: Jai Hernández MD on 07/03/2023 5:53 PM AKSALVADOR Station ID: [id number]
--- NOTE | 2023-07-03 18:59 | CT Report ---
PROCEDURE: Lumbar Spine WO INDICATIONS: LOW BACK PAIN TECHNIQUE: Noncontrast 3 mm thick sections acquired from the T12 level to the sacrum. Sagittal and coronal refo rmats were constructed. Dedicated oblique axial images were performed through the disk levels. Fo r radiation dose reduction, the following was used: automated exposure control, adjustment of mA and /or kV according to patient size. COMPARISON: Correlation is made with the accompanying imaging. FINDINGS: Image quality: Excellent. Bones: No acute vertebral body compression fractures. No suspicious lytic or blastic bony lesions. Central spinal caliber is of normal overall caliber. Minimal retrolisthesis can be seen at L3-L4. Mild grade 1 anterolisthesis can be seen at L4-L5 and L5 -S1, without associated pars defects. T12-L1: Normal in appearance. L1-L2: Normal in appearance. L2-L3: Normal in appearance. L3-L4: The disc height is relatively well preserved. Mild to moderate disc bulge is seen, which is eccentric to the right. There is a superimposed central disc osteophyte protrusion. No significant ne ural foraminal or central canal narrowing can be seen. L4-L5: Mild to moderate loss of disc height is seen. Endplate irregularity and sclerosis can be see n. Vacuum disc phenomenon is seen at this level. Moderate to prominent facet hypertrophy can be s een. There is focal degenerative change seen between the spinous processes of L4 and L5 (Baastrup's d isease). Moderate bilateral neural foraminal narrowing is seen. Moderate central canal narrowing i s seen. L5-S1: The disc height is relatively well preserved. Vacuum disc phenomenon is seen at this level. Endplate irregularity and sclerosis can be seen. At least moderate facet hypertrophy is seen. There is at least moderate bilateral neuroforaminal narrowing seen. No significant central canal narrowing is seen. Soft tissues: No retroperitoneal masses or hematomas. Visualized aorta is normal in caliber. Ather osclerotic calcification is seen. IMPRESSION: Multiple levels of lumbar spine degenerative change can be seen, which are worst inferiorly. Reviewed by: Jai Hernández MD on 07/03/2023 5:58 PM AKSALVADOR Approved by: Jai Hernández MD on 07/03/2023 5:58 PM AKDT Station ID: [id number]
== END 2023-07-03 15:17 | disposition home or self-care (01) ==
LOC: DI 15:16
PROVIDERS: ATTEND Nurse Practitioner Family
DX: M51.36 Other intervertebral disc degeneration, lumbar region (principal); M48.061 Spinal stenosis, lumbar region without neurogenic claudication; M48.26 Kissing spine, lumbar region; M47.816 Spondylosis without myelopathy or radiculopathy, lumbar region; M47.817 Spondylosis without myelopathy or radiculopathy, lumbosacral region; M48.07 Spinal stenosis, lumbosacral region; M47.812 Spondylosis without myelopathy or radiculopathy, cervical region